=== PATIENT | female | born 1955 | race Caucasian/White ===

== ENCOUNTER 2021-11-07 15:07 | Emergency (ER) | payer BC ==
[~2021-11-07] VITALS: Ht 170.2 cm; Wt 73.0 kg
[~2021-11-07 15:07] MED LIST: AMLODIPINE BES2.5 MG PO; AMOXAPINE25 MG PO; ASPIRIN EC325 MG PO; ASPIRIN EC81 MG PO; CINNAMON500 MG PO; DYRENIUM50 MG PO; LIPITOR10 MG PO; PERCOCET 5-3251 EACH PO; POTASSIUM GLUCO99 MG PO; SUPER B-50 COM1 EACH PO; VITAMIN D31000 UNI1 PO; VITAMIN E400 UNI1 PO
[2021-11-07] MEDS ORDERED: LOSARTAN POTASS50 MG PO (16:51)
[2021-11-07] MEDS ORDERED: SULFAMETHOXAZO1 EAC1 PO (16:51)
[2021-11-07] MEDS ORDERED: TRIAMTERENE-HC1 EAC1 PO (16:53)
[2021-11-07] MEDS ORDERED: FAMOTIDINE40 MG PO (16:53)
[2021-11-07] MEDS ORDERED: HYDROCODON-ACE1 EA10 PO (21:27)
== END 2021-11-07 21:40 | disposition home or self-care (01) ==
LOC: ED 15:07
DX: N12 Tubulo-interstitial nephritis, not specified as acute or chronic (principal); I10 Essential (primary) hypertension; E78.5 Hyperlipidemia, unspecified; Z88.8 Allergy status to other drugs, medicaments and biological substances; Z88.5 Allergy status to narcotic agent; Z79.899 Other long term (current) drug therapy; Z79.82 Long term (current) use of aspirin
CPT/HCPCS: 74176; 80048; 81001; 85025; 96374; 96375; 99284-25; J1885; J2405; J7030

== ENCOUNTER 2024-10-24 13:12 | Day surgery (SDC) | payer BC ==
[~2024-10-24] VITALS: Ht 167.6 cm; Wt 71.4 kg
[~2024-10-24 13:12] MED LIST changes: +ATORVASTATIN CA80 MG PO; +CARAFATE1 GM PO; +CLOPIDOGREL75 MG PO; +FAMOTIDINE40 MG PO; +HYDROCODON-ACE1 EA10 PO; +IBLOOD GLUCOSE TEST STRIP 1 EA TEST VI PRN; +LACTATED RINGER'S 1,000 ML IV SCH; +LEXAPRO10 MG PO; +LIDOCAINE HCL 1% 5 ML SDV INJ ONE; +LOSARTAN POTAS100 MG PO; +LOSARTAN POTASS50 MG PO; +MIDAZOLAM HCL 5 MG/5 ML VIAL IV PRN; +NITROGLYCERIN0.4 MG SL; +NORVASC10 MG PO; +OMEPRAZOLE40 MG PO; +OZEMPIC0.25 MG/02; +OZEMPIC0.25 MG/02 SUB-Q; +PANTOPRAZOLE SO40 MG PO; +POTASSIUM CHLO10 MEQ PO; +PROTONIX40 MG PO; +SULFAMETHOXAZO1 EAC1 PO; +TRIAMTERENE-HC1 EAC1 PO; +ZETIA10 MG PO; +fentaNYL citrate 100 MCG/2 ML VIAL IV PRN
[2024-10-24 13:34] VITALS: BP 147/67
[2024-10-24] MEDS ORDERED: MIDAZOLAM HCL 5 MG/5 ML VIAL ONE (14:32)
[2024-10-24] MEDS ORDERED: fentaNYL citrate 100 MCG/2 ML VIAL ONE (14:32)
--- NOTE | 2024-10-24 15:15 | NUR ---
10/24/24 1514 Jayleen Harp PT TO PACU SLEEPY BUT AROUSABLE SHE DENIES PAIN AND NAUSEA.
[2024-10-24 15:49] VITALS: BP 140/65
--- NOTE | 2024-10-24 18:17 | OR ---
[facility] [address], [place] [address] Signed DATE OF OPERATION: 10/24/2024 SURGEON: Gema Arriaga MD PREOPERATIVE DIAGNOSES: 1. Clinical gastroesophageal reflux, episodic dysphagia. 2. History of coronary stent, June 23, 2024, on Plavix. POSTOPERATIVE DIAGNOSES: 1. Small hiatal hernia without associated esophagitis or Connors's epithelium; no evidence of stricture neoplasm. 2. Normal stomach and duodenum. PROCEDURE: Esophagogastroduodenoscopy without biopsy. ANESTHESIA: Intravenous sedation; fentanyl 100 mcg and Versed 3 mg. INDICATION: This 68-year-old white woman is a patient of Dr. Fay Rock and referred for upper endoscopy. She underwent coronary stenting in June of this year and is on Plavix. She has had some dysphagia, epigastric pain, and symptoms suggestive of reflux disease. She was treated empirically with PPI medication, which has been quite helpful to her. Given her need for ongoing persistent Plavix use, upper endoscopy is offered without adjunctive biopsies unless absolutely necessary. The risk of bleeding, infection, and perforation were reviewed with her, she understands and wished to proceed. FINDINGS: Essentially, stomach, esophagus and duodenum were normal without signs of inflammatory problem. The flap valve at the GE junction was poor consistent with small hiatal hernia. She had no stricture. She had no Connors's epithelium, neoplasm or other adverse findings. DESCRIPTION OF PROCEDURE: The patient was brought to the endoscopy suite and placed in the lateral decubitus position, given intravenous sedation to the point of slurred speech and nystagmus. Full cardiopulmonary monitoring was maintained. A bite block was placed. An Olympus video upper endoscope was passed by hypopharynx. Vocal cords appeared normal. The scope was easily passed in the esophagus, throughout its length it was normal. Scope was then Electronically Signed By: GEMA ARRIAGA MD 10/24/24 1817 PATIENT NAME: ZE GUILLEN OPERATIVE REPORT DATE OF : 57 REPORT #: [id number] PHYSICIAN: GEMA ARRIAGA MD PCP: FAY ROCK MD REPORT IS CONFIDENTIAL AND NOT TO BE RELEASED WITHOUT AUTHORIZATION [facility] [address], [place] [address] Signed passed to the stomach which was insufflated with air. Rugal folds were normal. There was no sign of bile reflux. Pylorus was normal. Scope was passed through into the duodenum. The 2nd, 3rd and bulbar portions were normal. Scope was withdrawn and biopsies not taken under the concerns regarding the Plavix. Retroflexed view was undertaken showing a somewhat poor flap valve consistent with small hiatal hernia. The scope was straightened, withdrawn, and careful inspection of the distal esophagus showed no evidence of Connors's epithelium, stricture, neoplasm or other problem. Withdrawal of the scope allowed for similar observations more proximally. The patient was taken to the recovery room at conclusion of the procedure having suffered no complication. CONCLUDING DIAGNOSES: Small hiatal hernia, poor flap valve, likely accounting for reflux symptoms, now much improved with PPI medication. PLAN: We would recommend continued use of PPI medication for the time being. She will continue with her Plavix as she has been. She will return to the ongoing care of Fay Rock MD. Gema Arriaga MD JM/MODL /[id number] Copies: ~ Electronically Signed By: GEMA ARRIAGA MD 10/24/24 1817 PATIENT NAME: ZE GUILLEN OPERATIVE REPORT DATE OF : 57 REPORT #: [id number] PHYSICIAN: GEMA ARRIAGA MD PCP: FAY ROCK MD REPORT IS CONFIDENTIAL AND NOT TO BE RELEASED WITHOUT AUTHORIZATION
== END 2024-10-24 16:00 | disposition home or self-care (01) ==
LOC: OPS 13:12 → DS 13:13 → OPS 14:00 → DS 10-27 11:45
PROVIDERS: ATTEND Surgery
PROC: 0DJ08ZZ Inspection of Upper Intestinal Tract, Via Natural or Artificial Opening Endoscopic (ICD-10-PCS; principal; 2024-10-24 14:00)
DX: K21.00 Gastro-esophageal reflux disease with esophagitis, without bleeding (principal); K44.9 Diaphragmatic hernia without obstruction or gangrene; Z79.899 Other long term (current) drug therapy; Z88.5 Allergy status to narcotic agent; Z88.8 Allergy status to other drugs, medicaments and biological substances; Z95.1 Presence of aortocoronary bypass graft; Z90.49 Acquired absence of other specified parts of digestive tract; I10 Essential (primary) hypertension
CPT/HCPCS: G0500; J2250; J3010; J7121